=== PATIENT | female | born 1940 | race Caucasian/White ===

== ENCOUNTER 2019-06-15 08:45 | Outpatient (CLI) | payer OTHER, MEDICARE | END 2019-06-15 23:59 | disposition home or self-care (01) | LOC: RAD 08:45 | PROVIDERS: ATTEND Internal Medicine Hematology & Oncology | DX: I70.0 Atherosclerosis of aorta (principal); M85.88 Other specified disorders of bone density and structure, other site; M47.812 Spondylosis without myelopathy or radiculopathy, cervical region; M47.815 Spondylosis without myelopathy or radiculopathy, thoracolumbar region; C90.00 Multiple myeloma not having achieved remission; D47.2 Monoclonal gammopathy | CPT/HCPCS: 77075-TC ==

== ENCOUNTER 2021-12-27 16:03 | Emergency (ER) | payer MEDICARE, OTHER ==
[~2021-12-27] VITALS: Ht 157.5 cm; Wt 41.3 kg
--- NOTE | 2021-12-27 16:15 | NUR ---
RECIVED PT 81 YRS FEMALE PT TRANSFER FROM [facility] WITH C/O DIZZNESS AND WEEK AWAKE FALLOW COMMAND RESPIRATION SPONT AND EASY
[2021-12-27] MEDS ORDERED: IV NS 0.9% 1,000 ML BAG IV ONE (16:30)
[2021-12-27] MEDS ORDERED: ONDANSETRON HCL/PF 4 MG/2 ML VIAL IVP ONE (16:30)
--- NOTE | 2021-12-27 16:33 | NUR ---
[facility] [phone]
[2021-12-27] MEDS ORDERED: ONDANSETRON HCL/PF 4 MG/2 ML VIAL ONE (16:35)
[2021-12-27 17:09] LABS: BASOPHILS # (AUTO) 0.1 K/uL (0.0-0.2); BASOPHILS % (AUTO) 0.9 % (0.0-2.0); EOSINOPHILS % (AUTO) 1.9 % (0.0-6.0); HEMATOCRIT 28 % (33-45); HEMOGLOBIN 9.6 g/dL (11.5-14.8); LYMPHOCYTES # (AUTO) 1.2 K/uL (0.8-4.8); MEAN CORPUSCULAR HGB CONC 34 g/dl (31.0-36.0); MEAN CORPUSCULAR VOLUME 99 fL (82-100); MONOCYTES # (AUTO) 0.5 K/uL (0.1-1.30); MONOCYTES % (AUTO) 5.2 % (2.0-12.0); NEUTROPHILS # (AUTO) 7.5 K/uL (1.8-8.9); PLATELET COUNT (AUTO) 186 K/uL (150-450); RED BLOOD CELL COUNT(AUTO) 2.87 MIL/uL (4.0-5.2); WHITE BLOOD COUNT (AUTO) 9.4 K/uL (4.3-11.0)
[2021-12-27 17:22] LABS: CALCIUM, SERUM 8.8 mg/dL (8.5-10.1); CARBON DIOXIDE 28 mmol/L (21-32); CHLORIDE 95 mmol/L (98-107); CREATININE 0.8 mg/dL (0.6-1.3); GLUCOSE 107 mg/dL (74-106); POTASSIUM 4.1 mmol/L (3.5-5.1); SODIUM SERUM 126 mmol/L (136-145); UREA NITROGEN, BLOOD 20 mg/dL (7-18)
--- NOTE | 2021-12-27 17:23 | NUR ---
PT CONDITION STABLE NO PAIN
--- NOTE | 2021-12-27 18:24 | NUR ---
RESTING NO PAIN COLOSTOMY BAG CHANGED
--- NOTE | 2021-12-27 19:15 | NUR ---
D/C INSTRACTION GIVEN TO PT FULLY AND VERBLIZED UNDERSTOOD D/C HOME WITH FALLOW UP CARE GIVEN TO SON
[2021-12-27 19:26] VITALS: BP 123/67
== END 2021-12-27 19:27 | disposition home or self-care (01) ==
LOC: ER 16:07
DX: R55 Syncope and collapse (principal); F03.90 Unspecified dementia, unspecified severity, without behavioral disturbance, psychotic disturbance, mood disturbance, and anxiety; Z88.0 Allergy status to penicillin
CPT/HCPCS: 99283; 96374; 96361; 85025; 80048; 36415; J2405; J7030; A4362